=== PATIENT | male | born 1980 | race Caucasian/White ===

== ENCOUNTER 2017-03-18 15:59 | Emergency (ER) | payer OTHER ==
[2017-03-18 16:08] VITALS: BP 142/79
--- NOTE | 2017-03-18 16:33 | EDM.PDOC ---
ED HPI GENERAL MEDICAL PROBLEM - General Chief Complaint: Lower Extremity Injury/Pain Stated Complaint: RIGHT LEG INJURY Time Seen by Provider: 03/18/17 16:15 Source of Information: Reports: Patient History Limitations: Reports: No Limitations - History of Present Illness INITIAL COMMENTS - FREE TEXT/NARRATIVE: Patient is a 36 y/o male who presents to the E.D. complaining of pain to the right medial calf. States yesterday he jumped to catch a softball while and immediately developed pain to the right calf. Has not been able to flex/extend the foot 2nd to pain. Walks flat footed. States he can flex/extend the foot but chooses not to due to pain. Area bruised immediately. Has been placing ice and biofreeze with minimal improvements. Takes ibuprofen intermittently. Denies N/T, knee pain, ankle pain, foot pain, n/t, or any additional complaints. Onset: Sudden Onset Date: 03/17/17 Duration: Constant, Getting Worse Location: Reports: Lower Extremity, Right Quality: Reports: Ache, Throbbing Severity: Moderate Worsens with: Reports: Other (weight bearing), Movement Context: Reports: Activity Treatments [employer]: Reports: NSAIDS Right Lower Leg Pain Score (Numeric/FACES): 10 - Related Data Allergies Allergy/AdvReac Type Severity Reaction Status Date / Time No Known Allergies Allergy Verified 03/18/17 16:09 Home Meds: Home Meds . [No Known Home Meds] 03/18/17 [History] Past Medical History - Past Health History Medical/Surgical History: Denies Medical/Surgical History - Past Surgical History GI Surgical History: Reports: Hernia, Abdominal Social & Family History - Tobacco Use Smoking Status *Q: Never Smoker - Caffeine Use Caffeine Use: Reports: None - Recreational Drug Use Recreational Drug Use: No Review of Systems - Review of Systems Review Of Systems: ROS reveals no pertinent complaints other than HPI. ED EXAM, GENERAL - Physical Exam Exam: See Below Exam Limited By: No Limitations General Appearance: Alert, WD/WN, No Apparent Distress Ears: Hearing Grossly Normal Nose: Normal Inspection Throat/Mouth: Normal Voice, No Airway Compromise Neck: Normal Inspection, Supple Respiratory/Chest: No Respiratory Distress, Lungs Clear, Normal Breath Sounds, No Accessory Muscle Use Cardiovascular: Normal Peripheral Pulses, Regular Rate, Rhythm, No Murmur Extremities: Normal Inspection, No Pedal Edema, Normal Capillary Refill, Other ( Pain to the right medialcalf with mild swelling and bruising noted. Increased pain with palpation and flexion/extension of foot. No sensory deficits noted. ) Neurological: Alert, Oriented, CN II-XII Intact, Normal Cognition, No Motor/ Sensory Deficits. No: Normal Gait Psychiatric: Normal Affect, Normal Mood Skin Exam: Warm, Dry, Intact, Normal Color Course - Vital Signs Last Recorded V/S: Last Vital Signs Temp 98.6 F 03/18/17 16:05 Pulse 85 03/18/17 16:05 Resp 20 03/18/17 16:05 BP 142/79 H 03/18/17 16:05 Pulse Ox 98 03/18/17 16:05 - Orders/Labs/Meds Orders: Active Orders 24 hr Category Date Time Status DME for Discharge [COMM] Stat Oth 03/18/17 16:28 Ordered - Re-Assessments/Exams Free Text/Narrative Re-Assessment/Exam: Will go ahead and place the patient in a walking boot to decrease flexion extension of the foot. Crutches were provided on discharge to be nonweightbearing. Specific details were provided on discharge as documented. Departure - Departure Time of Disposition: 16:37 Disposition: Home, Self-Care 01 Condition: good Clinical Impression: Strain of calf muscle Qualifiers: Encounter type: initial encounter Laterality: right Qualified Code(s): S86.811A - Strain of other muscle(s) and tendon(s) at lower leg level, right leg , initial encounter - Discharge Information Referrals: PCP,None [Primary Care Provider] - Blair Sanabria MD [Physician] - Forms: ED Department Discharge Additional Instructions: 3 nonweightbearing utilizing a walking boot and crutches to ambulate. Elevate affected leg when able to reduce one pain. Take Tylenol and ibuprofen in alternating fashion for pain. Periodically pump your calf muscle and flex and extend your foot to decrease risk of forming a clot. Apply ice to the affected area 6 time daily, 20 minutes in duration for the next 24 hours. Thereafter alternate with heat and ICE. Call and make an appointment with in 7 to 14 days for reevaluation. Return to the E.D. for any new or worsening symptoms. - My Orders Last 24 Hours: My Active Orders 03/18/17 16:28 DME for Discharge [COMM] Stat - Assessment/Plan Last 24 Hours: My Active Orders 03/18/17 16:28 DME for Discharge [COMM] Stat
== END 2017-03-18 16:55 | disposition home or self-care (01) ==
LOC: JD.ED 15:59
DX: S86.811A Strain of other muscle(s) and tendon(s) at lower leg level, right leg, initial encounter (principal); Z98.890 Other specified postprocedural states; W17.89XA Other fall from one level to another, initial encounter; Y93.64 Activity, baseball
CPT/HCPCS: 99283